=== PATIENT | female | born 1945 ===

== ENCOUNTER → 2020-08-21 16:51 | Outpatient (ROUT) | payer OTHER, SELFPAY ==
[2020-08-21 16:59] LABS: Hematocrit 37.4 % (36-46); Hemoglobin 12.6 g/dL (12.0-16.0); Mean Corpuscular HGB Conc 33.7 % (30-36); Mean Corpuscular Hemoglobin 29.7 PG (26-34); Mean Corpuscular Volume 88.1 fL (80-100); Platelet Count 143 X10^3/uL (150-400); Red Blood Cell Count 4.24 X10^6/uL (4.0-5.2); Red Cell Distribution Width 15.8 % (11.6-14.8); White Blood Cell Count 5.3 X10^3/uL (4.5-11.0)
[2020-08-21 17:51] LABS: Thyroid Stimulating Hormone 1.08 uIU/mL (0.47-4.68)
== END ==
PROVIDERS: Visit Provider Family Medicine
DX: C18.2 Malignant neoplasm of ascending colon (principal)
CPT/HCPCS: 84443; 85027